=== PATIENT | male | born 1995 | race Caucasian/White ===

== ENCOUNTER 2018-11-04 11:42 | Outpatient (CLI) | payer OTHER ==
--- NOTE | 2018-11-05 04:48 | Diagnostic Imaging Report ---
[facility] [id number] [facility] [address] Report Submission Date: Nov 04, 2018 1:18:44 PM SPARE FIXER Patient Study Name: SURYA ALBRECHT Date: Nov 04, 2018 11:42:44 AM SPARE FIXER Modality Type: DX Gender: M Description: SPINE : 89 Institution: [facility] Physician: ACE CAMEJO Lumbar spine History: Low back pain AP and lateral projections of the lumbar spine demonstrate normal alignment. Vertebral body height and intervertebral disc space height is maintained. There is no spondylolisthesis or spondylolysis. Impression: No osseous abnormality. Electronically signed on Nov 04, 2018 1:18:44 PM SPARE FIXER by: Ghada IBANEZ
== END 2018-11-04 11:44 ==
LOC: RAD 11:42
PROVIDERS: ATTEND Family Medicine
DX: M54.5 Low back pain (principal)
CPT/HCPCS: 72100